=== PATIENT | male | born 1945 | race African-American/Black ===

== ENCOUNTER 2017-03-07 08:46 | Emergency (ER) | payer OTHER, MEDICAID ==
[~2017-03-07] VITALS: Ht 162.6 cm; Wt 54.0 kg
[~2017-03-07 08:46] MED LIST: FINA5TAB11 PO; NEXIUM; TAMS0.4C31 PO
[2017-03-07] MEDS ORDERED: IBUPROFEN 600MG TABLET PO ONE (11:15)
[2017-03-07] MEDS ORDERED: HYDROCODONE/ACETAMINOPHEN 5/325MG TABLET PO ONE (15:15)
[2017-03-07 16:00] VITALS: BP 147/84
== END 2017-03-07 17:46 | disposition home or self-care (01) ==
LOC: ER 12:48
DX: M48.54XA Collapsed vertebra, not elsewhere classified, thoracic region, initial encounter for fracture (principal); E86.0 Dehydration; M43.17 Spondylolisthesis, lumbosacral region; N40.0 Benign prostatic hyperplasia without lower urinary tract symptoms; I10 Essential (primary) hypertension; M19.90 Unspecified osteoarthritis, unspecified site; W18.30XA Fall on same level, unspecified, initial encounter; Y93.89 Activity, other specified; Y99.8 Other external cause status; Y92.009 Unspecified place in unspecified non-institutional (private) residence as the place of occurrence of the external cause
CPT/HCPCS: 72070; 72100; 99284

== ENCOUNTER 2018-05-23 12:11 | Emergency (ER) | payer OTHER, MEDICAID ==
[~2018-05-23] VITALS: Ht 162.6 cm; Wt 57.0 kg
[2018-05-23 12:21] VITALS: BP 125/79
== END 2018-05-23 16:00 | disposition home or self-care (01) ==
LOC: ER 14:06
DX: T85.618A Breakdown (mechanical) of other specified internal prosthetic devices, implants and grafts, initial encounter (principal); Y82.8 Other medical devices associated with adverse incidents; Y92.9 Unspecified place or not applicable; R42 Dizziness and giddiness; J06.9 Acute upper respiratory infection, unspecified; I10 Essential (primary) hypertension
CPT/HCPCS: 99283

== ENCOUNTER 2019-03-06 07:59 | Emergency (ER) | payer OTHER, MEDICAID ==
[~2019-03-06] VITALS: Ht 170.2 cm; Wt 70.0 kg
[2019-03-06 10:05] LABS: CLARITY URINE CLEAR (CLEAR); COLOR URINE YELLOW (YELLOW); KETONES URINE TRACE (NEGATIVE); LEUKOCYTE ESTERASE URINE NEGATIVE (NEGATIVE); NITRITE URINE NEGATIVE (NEGATIVE); OCCULT BLOOD URINE 2+ (NEGATIVE); PROTEIN URINE TRACE (NEGATIVE); SPECIFIC GRAVITY URINE 1.017 (1.005-1.030); UROBILINOGEN URINE 0.2 E.U./dL (0.2-1.0)
[2019-03-06] MEDS ORDERED: SODIUM CHLORIDE 0.9% 1,000 ML IV ONE (10:17)
[2019-03-06 11:35] LABS: BASOPHILS % 0.8 % (0.0-2.0); EOSINOPHILS % 0.8 % (0.0-5.0); HEMATOCRIT. 41.1 % (42.0-52.0); HEMOGLOBIN. 14.2 g/dL (14.0-18.0); LYMPHOCYTES % 23.8 % (20.0-50.0); MEAN CORPUSCULAR VOLUME 98.1 fL (80.0-94.0); MEAN PLATELET VOLUME 7.4 fl (7.4-10.4); MONOCYTES % 8.8 % (2.0-8.0); NEUTROPHILS % 65.8 % (40.0-76.0); PLATELET 247 x1000/uL (130-400); RED BLOOD CELL COUNT 4.19 mill/uL (4.7-6.1)
[2019-03-06 11:42] LABS: CHLORIDE 107 mEq/L (98-107)
[2019-03-06 15:03] VITALS: BP 145/71
== END 2019-03-06 15:04 | disposition home or self-care (01) ==
LOC: ER 07:59
DX: K59.00 Constipation, unspecified (principal); K64.9 Unspecified hemorrhoids; R33.9 Retention of urine, unspecified; I10 Essential (primary) hypertension
CPT/HCPCS: 36415; 51702; 71045; 80053; 81003; 83690; 83880; 84484; 85025; 93005; 99284; J7030

== ENCOUNTER 2019-03-09 07:16 | Emergency (ER) | payer OTHER, MEDICAID ==
[~2019-03-09] VITALS: Ht 167.6 cm; Wt 65.0 kg
[2019-03-09 10:10] VITALS: BP 151/74
== END 2019-03-09 10:10 | disposition home or self-care (01) ==
LOC: ER 07:16
DX: R33.9 Retention of urine, unspecified (principal); Z46.6 Encounter for fitting and adjustment of urinary device; I10 Essential (primary) hypertension; Z87.438 Personal history of other diseases of male genital organs; Z87.09 Personal history of other diseases of the respiratory system; Z79.899 Other long term (current) drug therapy
CPT/HCPCS: 99283

== ENCOUNTER 2021-12-24 12:57 | Inpatient (IN) | payer OTHER, MEDICAID ==
[~2021-12-24] VITALS: Ht 162.6 cm; Wt 44.0 kg
[2021-12-24] MEDS ORDERED: ONDANSETRON HCL 4MG/2ML INJ IV STA (14:03)
[2021-12-24] MEDS ORDERED: KETOROLAC 30MG/ML VIAL IV STA (14:03)
[2021-12-24] MEDS ORDERED: MORPHINE SULFATE 4 MG/ML CPJ (NOT FOR IM USE) IV STA (14:03)
[2021-12-24] MEDS ORDERED: SODIUM CHLORIDE 0.9% 1,000 ML IV ONE (14:15)
[2021-12-24 14:45] LABS: CLARITY URINE CLOUDY (CLEAR); COLOR URINE YELLOW (YELLOW); KETONES URINE NEGATIVE (NEGATIVE); LEUKOCYTE ESTERASE URINE 1+ (NEGATIVE); NITRITE URINE POSITIVE (NEGATIVE); OCCULT BLOOD URINE 1+ (NEGATIVE); PH URINE 5.5 (4.5-8.0); PROTEIN URINE 3+ (NEGATIVE); SPECIFIC GRAVITY URINE 1.016 (1.005-1.030)
[2021-12-24 15:00] LABS: CHLORIDE 104 mEq/L (98-107)
[2021-12-24 15:03] LABS: BASOPHILS % 1.9 % (0.0-2.0); HEMATOCRIT. 43.7 % (42.0-52.0); LYMPHOCYTES % 20.8 % (20.0-50.0); MEAN CORPUSCULAR VOLUME 77.2 fL (80.0-94.0); MEAN PLATELET VOLUME 8.2 fl (7.4-10.4); MONOCYTES % 13.9 % (2.0-8.0); NEUTROPHILS % 60.4 % (40.0-76.0); PLATELET 609 x1000/uL (130-400); RED BLOOD CELL COUNT 5.66 mill/uL (4.7-6.1); RED CELL DISTRIBUTION WIDTH 19.1 % (11.6-14.6)
[2021-12-24] MEDS ORDERED: CEFTRIAXONE 1 G PREMIX 50 ML IV ONE (15:30)
[2021-12-24] MEDS ORDERED: KETOROLAC 15MG/ML VIAL IV NR (15:49)
[2021-12-24] MEDS ORDERED: ONDANSETRON HCL 4MG/2ML INJ IV NR (15:49)
[2021-12-24] MEDS: MORPHINE SULFATE 4 MG/ML CPJ (NOT FOR IM USE) IV NR ×2 (16:06→17:14)
[2021-12-25 02:06] VITALS: BP 98/57
[2021-12-25] MEDS: DEXT 5%/0.45% NACL 1000ML 1,000 ML IV SCH ×2 (02:58→22:47)
[2021-12-25 04:00] VITALS: BP 115/60
[2021-12-25 08:00] VITALS: BP 148/72
[2021-12-25] MEDS: PANTOPRAZOLE SODIUM 40 MG/VIAL IV SCH (09:29)
[2021-12-25] MEDS: MORPHINE SULFATE 2 MG/ML CPJ (NOT FOR IM USE) IV PRN ×2 (10:29→23:03)
[2021-12-25 12:00] VITALS: BP 123/65
[2021-12-25 16:00] VITALS: BP 157/72
[2021-12-25] MEDS ORDERED: CEFTRIAXONE 1 G PREMIX 50 ML IV SCH (16:15)
[2021-12-25] MEDS: CEFTRIAXONE 1,000 MG in DEXTROSE 5% WATER 50 ML IV SCH (17:42)
[2021-12-25] MEDS ORDERED: NALOXONE HCL 0.4MG/ML VIAL IV PRN (17:45)
[2021-12-25 18:19] LABS: HEPATITIS B SURFACE ANTIGEN NEGATIVE
[2021-12-25 20:00] VITALS: BP 111/61
[2021-12-26 04:00] VITALS: BP 134/72
[2021-12-26] MEDS ORDERED: LIDOCAINE HCL/PF 1% 10 MG/ML 5ML VIAL ONE (07:08)
[2021-12-26 08:00] VITALS: BP 160/70
[2021-12-26 08:18] LABS: BASOPHILS % 2.2 % (0.0-2.0); HEMATOCRIT. 45.2 % (42.0-52.0); HEMOGLOBIN. 13.6 g/dL (14.0-18.0); LYMPHOCYTES % 22.2 % (20.0-50.0); MEAN CORPUSCULAR HEMOGLOBIN 23.1 pg (28.0-32.0); MEAN PLATELET VOLUME 8.4 fl (7.4-10.4); MONOCYTES % 14.9 % (2.0-8.0); NEUTROPHILS % 57.7 % (40.0-76.0); PLATELET 562 x1000/uL (130-400); RED BLOOD CELL COUNT 5.87 mill/uL (4.7-6.1); RED CELL DISTRIBUTION WIDTH 18.8 % (11.6-14.6)
[2021-12-26 08:24] LABS: CHLORIDE 100 mEq/L (98-107)
[2021-12-26 08:26] LABS: PROTHROMBIN TIME 11.1 sec (9.6-11.0)
[2021-12-26] MEDS ORDERED: FENTANYL CITRATE/PF 50MCG/ML 2ML VIAL ONE (08:58)
[2021-12-26] MEDS: PANTOPRAZOLE SODIUM 40 MG/VIAL IV SCH (10:26)
[2021-12-26] MEDS: MORPHINE SULFATE 2 MG/ML CPJ (NOT FOR IM USE) IV PRN (11:54)
[2021-12-26 12:00] VITALS: BP 146/76
[2021-12-26 12:12] LABS: INR 1.1; PROTHROMBIN TIME 11.3 sec (9.6-11.0)
[2021-12-26 16:00] VITALS: BP 144/82
[2021-12-26] MEDS: DEXT 5%/0.45% NACL 1000ML 1,000 ML IV SCH (17:32)
[2021-12-26] MEDS: CEFTRIAXONE 1,000 MG in DEXTROSE 5% WATER 50 ML IV SCH (17:32)
[2021-12-26] MEDS: TAMSULOSIN HCL 0.4MG SR CAPSULE PO SCH (17:33)
[2021-12-26] MEDS: FINASTERIDE 5MG TABLET PO SCH (17:34)
[2021-12-26 20:00] VITALS: BP 140/82
[2021-12-27] VITALS: BP 138/83
[2021-12-27] MEDS: MORPHINE SULFATE 2 MG/ML CPJ (NOT FOR IM USE) IV PRN ×3 (01:06→19:53)
[2021-12-27 04:00] VITALS: BP 127/81
[2021-12-27 08:00] VITALS: BP 130/71
[2021-12-27 08:20] LABS: BASOPHILS % 0.6 % (0.0-2.0); EOSINOPHILS % 3.5 % (0.0-5.0); HEMATOCRIT. 47.5 % (42.0-52.0); HEMOGLOBIN. 13.8 g/dL (14.0-18.0); LYMPHOCYTES % 22.3 % (20.0-50.0); MEAN CORPUSCULAR HEMOGLOBIN 22.8 pg (28.0-32.0); MEAN CORPUSCULAR VOLUME 78.6 fL (80.0-94.0); MEAN PLATELET VOLUME 8.2 fl (7.4-10.4); MONOCYTES % 14.2 % (2.0-8.0); NEUTROPHILS % 59.4 % (40.0-76.0); PLATELET 509 x1000/uL (130-400); RED BLOOD CELL COUNT 6.04 mill/uL (4.7-6.1); RED CELL DISTRIBUTION WIDTH 19.4 % (11.6-14.6)
[2021-12-27 08:30] LABS: CHLORIDE 102 mEq/L (98-107)
[2021-12-27] MEDS ORDERED: FINASTERIDE 5MG TABLET PO SCH (09:00)
[2021-12-27] MEDS ORDERED: TAMSULOSIN HCL 0.4MG SR CAPSULE PO SCH (09:00)
[2021-12-27] MEDS: FINASTERIDE 5MG TABLET PO SCH (09:29)
[2021-12-27] MEDS: PANTOPRAZOLE SODIUM 40 MG/VIAL IV SCH (09:30)
[2021-12-27] MEDS: TAMSULOSIN HCL 0.4MG SR CAPSULE PO SCH (09:30)
[2021-12-27 12:00] VITALS: BP 143/78
[2021-12-27 16:00] VITALS: BP 133/75
[2021-12-27] MEDS: CEFTRIAXONE 1,000 MG in DEXTROSE 5% WATER 50 ML IV SCH (16:51)
[2021-12-27 20:00] VITALS: BP 131/72
[2021-12-28] VITALS (23 sets, daily range): BP systolic 128–164; BP diastolic 57–93
[2021-12-28 06:44] LABS: BASOPHILS % 0.9 % (0.0-2.0); EOSINOPHILS % 3.3 % (0.0-5.0); HEMATOCRIT. 45.3 % (42.0-52.0); HEMOGLOBIN. 13.6 g/dL (14.0-18.0); LYMPHOCYTES % 23.1 % (20.0-50.0); MEAN CORPUSCULAR VOLUME 76.4 fL (80.0-94.0); MEAN PLATELET VOLUME 8.3 fl (7.4-10.4); MONOCYTES % 14.4 % (2.0-8.0); NEUTROPHILS % 58.3 % (40.0-76.0); PLATELET 578 x1000/uL (130-400); RED BLOOD CELL COUNT 5.93 mill/uL (4.7-6.1); RED CELL DISTRIBUTION WIDTH 19.1 % (11.6-14.6)
[2021-12-28] MEDS: DEXT 5%/0.45% NACL 1000ML 1,000 ML IV SCH ×3 (06:59→22:17)
[2021-12-28] MEDS ORDERED: FENTANYL CITRATE/PF 50MCG/ML 2ML VIAL IV NR (07:21)
[2021-12-28] MEDS ORDERED: LIDOCAINE HCL/PF 1% 10 MG/ML 5ML VIAL ONE (07:21)
[2021-12-28] MEDS ORDERED: FENTANYL CITRATE/PF 50MCG/ML 2ML VIAL ONE (07:21)
[2021-12-28 08:41] LABS: CHLORIDE 99 mEq/L (98-107)
[2021-12-28 09:39] LABS: INR 1.1; PROTHROMBIN TIME 11.4 sec (9.6-11.0)
[2021-12-28] MEDS: FINASTERIDE 5MG TABLET PO SCH (10:30)
[2021-12-28] MEDS: PANTOPRAZOLE SODIUM 40 MG/VIAL IV SCH (10:30)
[2021-12-28] MEDS: TAMSULOSIN HCL 0.4MG SR CAPSULE PO SCH (10:31)
[2021-12-28] MEDS: MORPHINE SULFATE 2 MG/ML CPJ (NOT FOR IM USE) IV PRN ×2 (10:32→23:32)
[2021-12-28 13:23] LABS: HEMATOCRIT 44.1 % (42.0-52.0); HEMOGLOBIN 13.2 g/dL (14.0-18.0)
[2021-12-28] MEDS: CEFTRIAXONE 1,000 MG in DEXTROSE 5% WATER 50 ML IV SCH (17:46)
[2021-12-29] VITALS: BP 134/82
[2021-12-29 04:00] VITALS: BP 191/82
[2021-12-29 06:19] LABS: HEMATOCRIT. 42.7 % (42.0-52.0); MEAN CORPUSCULAR HEMOGLOBIN 22.9 pg (28.0-32.0); MEAN CORPUSCULAR VOLUME 75.2 fL (80.0-94.0); MEAN PLATELET VOLUME 8.5 fl (7.4-10.4); PLATELET 525 x1000/uL (130-400); RED BLOOD CELL COUNT 5.67 mill/uL (4.7-6.1); RED CELL DISTRIBUTION WIDTH 19.4 % (11.6-14.6)
[2021-12-29 06:20] LABS: CHLORIDE 103 mEq/L (98-107)
[2021-12-29 08:00] VITALS: BP 148/73
[2021-12-29] MEDS: TAMSULOSIN HCL 0.4MG SR CAPSULE PO SCH (09:36)
[2021-12-29] MEDS: FINASTERIDE 5MG TABLET PO SCH (09:37)
[2021-12-29] MEDS: PANTOPRAZOLE SODIUM 40 MG/VIAL IV SCH (09:37)
[2021-12-29] MEDS: DEXT 5%/0.45% NACL 1000ML 1,000 ML IV SCH (11:21)
[2021-12-29] MEDS: MORPHINE SULFATE 2 MG/ML CPJ (NOT FOR IM USE) IV PRN (11:25)
[2021-12-29 12:00] VITALS: BP 132/73
[2021-12-29 14:38] LABS: PLATELET ESTIMATE INCREASED
[2021-12-29 16:00] VITALS: BP 124/66
[2021-12-29] MEDS: CEFTRIAXONE 1,000 MG in DEXTROSE 5% WATER 50 ML IV SCH (16:40)
[2021-12-29 20:00] VITALS: BP 108/52
[2021-12-30] MEDS: DEXT 5%/0.45% NACL 1000ML 1,000 ML IV SCH ×2 (01:18→15:15)
[2021-12-30] MEDS: HYDROCODONE/ACETAMINOPHEN 5/325MG TABLET PO PRN ×3 (01:19→15:33)
[2021-12-30 05:44] LABS: CHLORIDE 103 mEq/L (98-107); HEMATOCRIT. 39.5 % (42.0-52.0); MEAN CORPUSCULAR HEMOGLOBIN 22.9 pg (28.0-32.0); MEAN CORPUSCULAR VOLUME 75.4 fL (80.0-94.0); MEAN PLATELET VOLUME 8.3 fl (7.4-10.4); PLATELET 499 x1000/uL (130-400); RED BLOOD CELL COUNT 5.24 mill/uL (4.7-6.1); RED CELL DISTRIBUTION WIDTH 19.2 % (11.6-14.6)
[2021-12-30 08:00] VITALS: BP 129/63
[2021-12-30] MEDS: FINASTERIDE 5MG TABLET PO SCH (08:44)
[2021-12-30] MEDS: PANTOPRAZOLE SODIUM 40 MG/VIAL IV SCH (08:44)
[2021-12-30] MEDS: TAMSULOSIN HCL 0.4MG SR CAPSULE PO SCH (08:44)
[2021-12-30 12:00] VITALS: BP 125/57
[2021-12-30 16:00] VITALS: BP 152/68
[2021-12-30] MEDS: CEFTRIAXONE 1,000 MG in DEXTROSE 5% WATER 50 ML IV SCH (17:02)
[2021-12-30 20:00] VITALS: BP 156/76
[2021-12-30 20:13] LABS: NUCLEATED RED BLOOD CELLS 1 /100 WBC; PLATELET ESTIMATE INCREASED
[2021-12-31] VITALS: BP 150/82
[2021-12-31] MEDS: DEXT 5%/0.45% NACL 1000ML 1,000 ML IV SCH ×2 (03:55→17:58)
[2021-12-31 04:00] VITALS: BP 149/59
[2021-12-31] MEDS: HYDROCODONE/ACETAMINOPHEN 5/325MG TABLET PO PRN ×2 (05:44→20:21)
[2021-12-31 06:45] LABS: CHLORIDE 104 mEq/L (98-107)
[2021-12-31 07:22] LABS: BASOPHILS % 0.6 % (0.0-2.0); EOSINOPHILS % 3.3 % (0.0-5.0); HEMATOCRIT. 41.7 % (42.0-52.0); HEMOGLOBIN. 12.6 g/dL (14.0-18.0); LYMPHOCYTES % 16.1 % (20.0-50.0); MEAN CORPUSCULAR HEMOGLOBIN 22.8 pg (28.0-32.0); MEAN CORPUSCULAR VOLUME 75.5 fL (80.0-94.0); MEAN PLATELET VOLUME 8.7 fl (7.4-10.4); MONOCYTES % 12.7 % (2.0-8.0); NEUTROPHILS % 67.3 % (40.0-76.0); PLATELET 534 x1000/uL (130-400); RED BLOOD CELL COUNT 5.52 mill/uL (4.7-6.1); RED CELL DISTRIBUTION WIDTH 19.2 % (11.6-14.6)
[2021-12-31 08:00] VITALS: BP 184/90
[2021-12-31] MEDS: FINASTERIDE 5MG TABLET PO SCH (09:09)
[2021-12-31] MEDS: TAMSULOSIN HCL 0.4MG SR CAPSULE PO SCH (09:09)
[2021-12-31] MEDS: PANTOPRAZOLE SODIUM 40 MG/VIAL IV SCH (09:10)
[2021-12-31 12:00] VITALS: BP 164/83
[2021-12-31 13:02] LABS: BASOPHILS % 0.4 % (0.0-2.0); EOSINOPHILS % 3.1 % (0.0-5.0); HEMATOCRIT. 41.5 % (42.0-52.0); HEMOGLOBIN. 12.4 g/dL (14.0-18.0); LYMPHOCYTES % 19.4 % (20.0-50.0); MEAN CORPUSCULAR HEMOGLOBIN 22.5 pg (28.0-32.0); MEAN CORPUSCULAR VOLUME 75.5 fL (80.0-94.0); MEAN PLATELET VOLUME 8.5 fl (7.4-10.4); MONOCYTES % 14.1 % (2.0-8.0); PLATELET 538 x1000/uL (130-400); RED CELL DISTRIBUTION WIDTH 19.2 % (11.6-14.6)
[2021-12-31 13:09] LABS: CHLORIDE 103 mEq/L (98-107)
[2021-12-31 16:00] VITALS: BP 155/78
[2021-12-31 20:00] VITALS: BP 145/85
[2022-01-01] VITALS: BP 145/86
[2022-01-01 04:00] VITALS: BP 137/77
[2022-01-01 06:33] LABS: HEMATOCRIT. 43.4 % (42.0-52.0); MEAN CORPUSCULAR HEMOGLOBIN 22.4 pg (28.0-32.0); MEAN CORPUSCULAR VOLUME 74.6 fL (80.0-94.0); MEAN PLATELET VOLUME 8.4 fl (7.4-10.4); PLATELET 546 x1000/uL (130-400); RED BLOOD CELL COUNT 5.81 mill/uL (4.7-6.1); RED CELL DISTRIBUTION WIDTH 18.8 % (11.6-14.6)
[2022-01-01 06:56] LABS: CHLORIDE 101 mEq/L (98-107)
[2022-01-01] MEDS: DEXT 5%/0.45% NACL 1000ML 1,000 ML IV SCH ×2 (07:11→19:55)
[2022-01-01 08:00] VITALS: BP 107/62
[2022-01-01] MEDS: PANTOPRAZOLE SODIUM 40 MG/VIAL IV SCH (10:29)
[2022-01-01] MEDS: FINASTERIDE 5MG TABLET PO SCH (10:30)
[2022-01-01] MEDS: TAMSULOSIN HCL 0.4MG SR CAPSULE PO SCH (10:30)
[2022-01-01] MEDS: HYDROCODONE/ACETAMINOPHEN 5/325MG TABLET PO PRN (10:30)
[2022-01-01 11:54] VITALS: BP 132/71
[2022-01-01 12:46] LABS: PLATELET ESTIMATE INCREASED
[2022-01-01 15:54] VITALS: BP 128/74
[2022-01-01 20:00] VITALS: BP 133/67
[2022-01-02] VITALS: BP 128/62
[2022-01-02] MEDS: HYDROCODONE/ACETAMINOPHEN 5/325MG TABLET PO PRN ×4 (02:48→21:03)
[2022-01-02 04:00] VITALS: BP 131/60
[2022-01-02 07:23] LABS: HEMATOCRIT. 40.3 % (42.0-52.0); MEAN CORPUSCULAR HEMOGLOBIN 22.4 pg (28.0-32.0); MEAN PLATELET VOLUME 8.5 fl (7.4-10.4); PLATELET 519 x1000/uL (130-400); RED BLOOD CELL COUNT 5.36 mill/uL (4.7-6.1); RED CELL DISTRIBUTION WIDTH 19.7 % (11.6-14.6)
[2022-01-02 08:00] VITALS: BP 136/70
[2022-01-02 08:13] LABS: CHLORIDE 100 mEq/L (98-107)
[2022-01-02] MEDS: PANTOPRAZOLE SODIUM 40 MG/VIAL IV SCH (09:49)
[2022-01-02] MEDS: FINASTERIDE 5MG TABLET PO SCH (09:49)
[2022-01-02] MEDS: TAMSULOSIN HCL 0.4MG SR CAPSULE PO SCH (09:50)
[2022-01-02] MEDS: DEXT 5%/0.45% NACL 1000ML 1,000 ML IV SCH ×2 (09:50→22:35)
[2022-01-02 11:41] LABS: PLATELET ESTIMATE INCREASED
[2022-01-02 12:00] VITALS: BP 119/74
[2022-01-02 16:00] VITALS: BP 128/74
[2022-01-02] MEDS ORDERED: NALOXONE HCL 0.4MG/ML VIAL IV PRN (17:00)
[2022-01-02] MEDS ORDERED: POLYETHYLENE GLYCOL 3350 (17GM) 1 DOSE PACK PO PRN (17:00)
[2022-01-02] MEDS ORDERED: DOCUSATE SODIUM 250MG CAPSULE PO PRN (17:00)
[2022-01-02 20:00] VITALS: BP 100/49
[2022-01-02] MEDS: SENNOSIDES 8.6MG TABLET PO SCH (20:55)
[2022-01-03] VITALS: BP 145/77
[2022-01-03 04:00] VITALS: BP 116/57
[2022-01-03 06:26] LABS: HEMATOCRIT. 39.2 % (42.0-52.0); HEMOGLOBIN. 11.8 g/dL (14.0-18.0); MEAN CORPUSCULAR HEMOGLOBIN 22.5 pg (28.0-32.0); MEAN CORPUSCULAR VOLUME 74.8 fL (80.0-94.0); MEAN PLATELET VOLUME 8.6 fl (7.4-10.4); PLATELET 525 x1000/uL (130-400); RED BLOOD CELL COUNT 5.23 mill/uL (4.7-6.1); RED CELL DISTRIBUTION WIDTH 19.8 % (11.6-14.6)
[2022-01-03 07:10] LABS: CHLORIDE 100 mEq/L (98-107)
[2022-01-03 08:00] VITALS: BP 190/96
[2022-01-03] MEDS: PANTOPRAZOLE SODIUM 40 MG/VIAL IV SCH (08:42)
[2022-01-03] MEDS: FINASTERIDE 5MG TABLET PO SCH (08:42)
[2022-01-03] MEDS: TAMSULOSIN HCL 0.4MG SR CAPSULE PO SCH (08:43)
[2022-01-03] MEDS: HYDROCODONE/ACETAMINOPHEN 5/325MG TABLET PO PRN ×2 (08:44→16:09)
[2022-01-03] MEDS: DEXT 5%/0.45% NACL 1000ML 1,000 ML IV SCH (11:55)
[2022-01-03 12:00] VITALS: BP 119/72
[2022-01-03 13:52] LABS: ATYPICAL LYMPHOCYTES 2
[2022-01-03 13:55] LABS: PLATELET ESTIMATE INCREASED
[2022-01-03 16:00] VITALS: BP 124/74
[2022-01-03 20:00] VITALS: BP 114/61
[2022-01-03] MEDS: SENNOSIDES 8.6MG TABLET PO SCH (20:59)
[2022-01-04] VITALS: BP 137/75
[2022-01-04] MEDS: HYDROCODONE/ACETAMINOPHEN 5/325MG TABLET PO PRN ×2 (00:56→15:06)
[2022-01-04] MEDS: DEXT 5%/0.45% NACL 1000ML 1,000 ML IV SCH ×2 (01:15→15:06)
[2022-01-04 04:00] VITALS: BP 136/77
[2022-01-04 06:34] LABS: CHLORIDE 98 mEq/L (98-107)
[2022-01-04 06:35] LABS: HEMOGLOBIN. 11.7 g/dL (14.0-18.0); MEAN CORPUSCULAR HEMOGLOBIN 22.9 pg (28.0-32.0); MEAN PLATELET VOLUME 8.6 fl (7.4-10.4); PLATELET 522 x1000/uL (130-400); RED BLOOD CELL COUNT 5.13 mill/uL (4.7-6.1); RED CELL DISTRIBUTION WIDTH 19.2 % (11.6-14.6)
[2022-01-04 08:00] VITALS: BP 138/63
[2022-01-04] MEDS: PANTOPRAZOLE SODIUM 40 MG/VIAL IV SCH (08:25)
[2022-01-04] MEDS: TAMSULOSIN HCL 0.4MG SR CAPSULE PO SCH (08:26)
[2022-01-04] MEDS: FINASTERIDE 5MG TABLET PO SCH (08:26)
[2022-01-04 12:00] VITALS: BP 122/64
[2022-01-04 12:10] LABS: PLATELET ESTIMATE INCREASED
[2022-01-04 16:00] VITALS: BP 152/82
[2022-01-04 20:00] VITALS: BP 139/75
[2022-01-04] MEDS: SENNOSIDES 8.6MG TABLET PO SCH (21:00)
[2022-01-05] VITALS: BP 145/79
[2022-01-05] MEDS: DEXT 5%/0.45% NACL 1000ML 1,000 ML IV SCH ×2 (03:55→17:58)
[2022-01-05 04:00] VITALS: BP 138/85
[2022-01-05] MEDS: HYDROCODONE/ACETAMINOPHEN 5/325MG TABLET PO PRN ×2 (05:02→13:41)
[2022-01-05 08:00] VITALS: BP 183/108
[2022-01-05 08:41] LABS: HEMOGLOBIN. 11.9 g/dL (14.0-18.0); RED CELL DISTRIBUTION WIDTH 19.6 % (11.6-14.6)
[2022-01-05 08:44] LABS: MEAN CORPUSCULAR HEMOGLOBIN 22.6 pg (28.0-32.0); MEAN PLATELET VOLUME 8.3 fl (7.4-10.4); PLATELET 515 x1000/uL (130-400); RED BLOOD CELL COUNT 5.26 mill/uL (4.7-6.1)
[2022-01-05] MEDS: PANTOPRAZOLE SODIUM 40 MG/VIAL IV SCH (08:57)
[2022-01-05] MEDS: FINASTERIDE 5MG TABLET PO SCH (08:58)
[2022-01-05] MEDS: TAMSULOSIN HCL 0.4MG SR CAPSULE PO SCH (08:58)
[2022-01-05 10:26] LABS: CHLORIDE 99 mEq/L (98-107)
[2022-01-05 12:00] VITALS: BP 120/67
[2022-01-05 12:20] LABS: NUCLEATED RED BLOOD CELLS 2 /100 WBC; PLATELET ESTIMATE INCREASED
[2022-01-05 16:00] VITALS: BP 123/69
[2022-01-05 20:00] VITALS: BP 140/67
[2022-01-05] MEDS: SENNOSIDES 8.6MG TABLET PO SCH (21:10)
[2022-01-06] VITALS: BP 156/97
[2022-01-06] MEDS: HYDROCODONE/ACETAMINOPHEN 5/325MG TABLET PO PRN ×4 (00:22→21:44)
[2022-01-06 04:00] VITALS: BP 141/78
[2022-01-06] MEDS: DEXT 5%/0.45% NACL 1000ML 1,000 ML IV SCH ×2 (06:35→19:55)
[2022-01-06 07:15] LABS: BASOPHILS % 1.2 % (0.0-2.0); EOSINOPHILS % 5.8 % (0.0-5.0); HEMATOCRIT. 38.8 % (42.0-52.0); HEMOGLOBIN. 11.5 g/dL (14.0-18.0); LYMPHOCYTES % 21.3 % (20.0-50.0); MEAN CORPUSCULAR HEMOGLOBIN 22.1 pg (28.0-32.0); MEAN CORPUSCULAR VOLUME 74.6 fL (80.0-94.0); MEAN PLATELET VOLUME 8.4 fl (7.4-10.4); MONOCYTES % 14.1 % (2.0-8.0); NEUTROPHILS % 57.6 % (40.0-76.0); PLATELET 512 x1000/uL (130-400); RED BLOOD CELL COUNT 5.21 mill/uL (4.7-6.1); RED CELL DISTRIBUTION WIDTH 19.6 % (11.6-14.6)
[2022-01-06 07:31] LABS: CHLORIDE 99 mEq/L (98-107)
[2022-01-06 08:00] VITALS: BP 149/78
[2022-01-06] MEDS: TAMSULOSIN HCL 0.4MG SR CAPSULE PO SCH (09:34)
[2022-01-06] MEDS: PANTOPRAZOLE SODIUM 40 MG/VIAL IV SCH (09:35)
[2022-01-06] MEDS: FINASTERIDE 5MG TABLET PO SCH (09:35)
[2022-01-06 12:00] VITALS: BP 197/96
[2022-01-06 16:00] VITALS: BP 128/77
[2022-01-06 20:00] VITALS: BP 147/83
[2022-01-06] MEDS: SENNOSIDES 8.6MG TABLET PO SCH (21:45)
[2022-01-07] VITALS (7 sets, daily range): BP systolic 104–153; BP diastolic 64–96
[2022-01-07] MEDS: VISCOUS LIDOCAINE 2% 15 ML UDC MM PRN ×2 (06:20→17:09)
[2022-01-07 06:46] LABS: BASOPHILS % 0.5 % (0.0-2.0); EOSINOPHILS % 5.7 % (0.0-5.0); HEMATOCRIT. 40.3 % (42.0-52.0); HEMOGLOBIN. 11.8 g/dL (14.0-18.0); LYMPHOCYTES % 16.7 % (20.0-50.0); MEAN CORPUSCULAR HEMOGLOBIN 21.5 pg (28.0-32.0); MEAN CORPUSCULAR VOLUME 73.6 fL (80.0-94.0); MEAN PLATELET VOLUME 8.5 fl (7.4-10.4); MONOCYTES % 13.1 % (2.0-8.0); PLATELET 548 x1000/uL (130-400); RED BLOOD CELL COUNT 5.48 mill/uL (4.7-6.1)
[2022-01-07 06:57] LABS: CHLORIDE 100 mEq/L (98-107)
[2022-01-07] MEDS: FINASTERIDE 5MG TABLET PO SCH (10:27)
[2022-01-07] MEDS: PANTOPRAZOLE SODIUM 40 MG/VIAL IV SCH (10:29)
[2022-01-07] MEDS: DEXT 5%/0.45% NACL 1000ML 1,000 ML IV SCH ×2 (10:30→22:14)
[2022-01-07] MEDS: HYDROCODONE/ACETAMINOPHEN 5/325MG TABLET PO PRN ×2 (10:45→17:15)
[2022-01-07] MEDS: TAMSULOSIN HCL 0.4MG SR CAPSULE PO SCH (10:45)
[2022-01-07] MEDS: SENNOSIDES 8.6MG TABLET PO SCH (21:07)
[2022-01-08] VITALS (7 sets, daily range): BP systolic 104–194; BP diastolic 57–103
[2022-01-08] MEDS ORDERED: CLONIDINE 0.1MG TABLET PO PRN (05:45)
[2022-01-08 06:39] LABS: BASOPHILS % 0.5 % (0.0-2.0); EOSINOPHILS % 6.2 % (0.0-5.0); HEMATOCRIT. 40.6 % (42.0-52.0); HEMOGLOBIN. 12.3 g/dL (14.0-18.0); LYMPHOCYTES % 21.1 % (20.0-50.0); MEAN CORPUSCULAR HEMOGLOBIN 22.7 pg (28.0-32.0); MEAN CORPUSCULAR VOLUME 74.7 fL (80.0-94.0); MEAN PLATELET VOLUME 8.4 fl (7.4-10.4); NEUTROPHILS % 60.2 % (40.0-76.0); PLATELET 571 x1000/uL (130-400); RED BLOOD CELL COUNT 5.44 mill/uL (4.7-6.1)
[2022-01-08 06:47] LABS: CHLORIDE 97 mEq/L (98-107)
[2022-01-08] MEDS: FINASTERIDE 5MG TABLET PO SCH (09:43)
[2022-01-08] MEDS: PANTOPRAZOLE SODIUM 40 MG/VIAL IV SCH (09:43)
[2022-01-08] MEDS: VISCOUS LIDOCAINE 2% 15 ML UDC MM PRN ×2 (09:44→20:06)
[2022-01-08] MEDS: TAMSULOSIN HCL 0.4MG SR CAPSULE PO SCH (09:44)
[2022-01-08] MEDS: DEXT 5%/0.45% NACL 1000ML 1,000 ML IV SCH (11:53)
[2022-01-08] MEDS: HYDROCODONE/ACETAMINOPHEN 5/325MG TABLET PO PRN ×2 (12:00→20:24)
[2022-01-08] MEDS: SENNOSIDES 8.6MG TABLET PO SCH (21:00)
[2022-01-08] MEDS ORDERED: NALOXONE HCL 0.4MG/ML VIAL IV PRN (23:15)
[2022-01-09] VITALS: BP 154/76
[2022-01-09] MEDS: DEXT 5%/0.45% NACL 1000ML 1,000 ML IV SCH ×2 (01:18→14:02)
[2022-01-09 04:00] VITALS: BP 159/85
[2022-01-09 08:00] VITALS: BP 133/52
[2022-01-09 08:09] LABS: BASOPHILS % 0.5 % (0.0-2.0); EOSINOPHILS % 6.4 % (0.0-5.0); HEMATOCRIT. 41.5 % (42.0-52.0); HEMOGLOBIN. 12.5 g/dL (14.0-18.0); LYMPHOCYTES % 19.9 % (20.0-50.0); MEAN CORPUSCULAR HEMOGLOBIN 22.2 pg (28.0-32.0); MEAN CORPUSCULAR VOLUME 73.7 fL (80.0-94.0); MEAN PLATELET VOLUME 8.5 fl (7.4-10.4); MONOCYTES % 13.1 % (2.0-8.0); NEUTROPHILS % 60.1 % (40.0-76.0); PLATELET 521 x1000/uL (130-400); RED BLOOD CELL COUNT 5.63 mill/uL (4.7-6.1); RED CELL DISTRIBUTION WIDTH 19.9 % (11.6-14.6)
[2022-01-09 08:14] LABS: CHLORIDE 100 mEq/L (98-107)
[2022-01-09] MEDS: TAMSULOSIN HCL 0.4MG SR CAPSULE PO SCH (09:32)
[2022-01-09] MEDS: PANTOPRAZOLE SODIUM 40 MG/VIAL IV SCH (09:32)
[2022-01-09] MEDS: FINASTERIDE 5MG TABLET PO SCH (09:33)
[2022-01-09] MEDS: HYDROCODONE/ACETAMINOPHEN 5/325MG TABLET PO PRN ×2 (09:34→19:09)
[2022-01-09 12:00] VITALS: BP_SYST 125; BP_SYST 128; BP_DIAS 72; BP_DIAS 78
[2022-01-09] MEDS: MORPHINE SULFATE 2 MG/ML CPJ (NOT FOR IM USE) IV PRN (14:45)
[2022-01-09 16:00] VITALS: BP 130/72
[2022-01-09] MEDS: VISCOUS LIDOCAINE 2% 15 ML UDC MM PRN (19:08)
[2022-01-09] MEDS: SENNOSIDES 8.6MG TABLET PO SCH (21:14)
[2022-01-10] MEDS: DEXT 5%/0.45% NACL 1000ML 1,000 ML IV SCH (04:06)
[2022-01-10] MEDS: HYDROCODONE/ACETAMINOPHEN 5/325MG TABLET PO PRN ×2 (04:08→14:08)
[2022-01-10 05:58] LABS: CHLORIDE 100 mEq/L (98-107)
[2022-01-10 06:20] LABS: HEMATOCRIT. 39.1 % (42.0-52.0); HEMOGLOBIN. 11.9 g/dL (14.0-18.0); MEAN CORPUSCULAR HEMOGLOBIN 22.3 pg (28.0-32.0); MEAN CORPUSCULAR VOLUME 73.8 fL (80.0-94.0); MEAN PLATELET VOLUME 8.5 fl (7.4-10.4); PLATELET 516 x1000/uL (130-400); RED BLOOD CELL COUNT 5.31 mill/uL (4.7-6.1)
[2022-01-10] MEDS: FINASTERIDE 5MG TABLET PO SCH (08:39)
[2022-01-10] MEDS: TAMSULOSIN HCL 0.4MG SR CAPSULE PO SCH (08:39)
[2022-01-10] MEDS: PANTOPRAZOLE SODIUM 40 MG/VIAL IV SCH (08:40)
[2022-01-10] MEDS: MORPHINE SULFATE 2 MG/ML CPJ (NOT FOR IM USE) IV PRN ×2 (08:41→18:18)
[2022-01-10 12:00] VITALS: BP 113/67
[2022-01-10 14:17] LABS: PLATELET ESTIMATE INCREASED
[2022-01-10 16:00] VITALS: BP 121/66
[2022-01-10 18:05] VITALS: BP 116/64
[2022-01-10 18:18] VITALS: BP 134/64
== END 2022-01-10 18:45 | DRG 436 ==
LOC: ER 13:29 → 6EST 18:12 → ENRESERV 21:43
PROVIDERS: ADMIT Internal Medicine; ATTEND Internal Medicine
PROC: 0FB03ZX Excision of Liver, Percutaneous Approach, Diagnostic (ICD-10-PCS; principal; 2021-12-28)
DX: C22.8 Malignant neoplasm of liver, primary, unspecified as to type (principal); E44.1 Mild protein-calorie malnutrition; N39.0 Urinary tract infection, site not specified; Z68.1 Body mass index [BMI] 19.9 or less, adult; K80.20 Calculus of gallbladder without cholecystitis without obstruction; E27.9 Disorder of adrenal gland, unspecified; F17.200 Nicotine dependence, unspecified, uncomplicated; I10 Essential (primary) hypertension; M19.90 Unspecified osteoarthritis, unspecified site; N20.0 Calculus of kidney; N28.1 Cyst of kidney, acquired; B19.20 Unspecified viral hepatitis C without hepatic coma; K59.00 Constipation, unspecified; N41.9 Inflammatory disease of prostate, unspecified; R16.0 Hepatomegaly, not elsewhere classified; Z20.822 Contact with and (suspected) exposure to COVID-19; N27.0 Small kidney, unilateral; N40.0 Benign prostatic hyperplasia without lower urinary tract symptoms; D64.9 Anemia, unspecified; B96.20 Unspecified Escherichia coli [E. coli] as the cause of diseases classified elsewhere; Z87.442 Personal history of urinary calculi; Z79.899 Other long term (current) drug therapy; Z80.0 Family history of malignant neoplasm of digestive organs; Z87.11 Personal history of peptic ulcer disease
CPT/HCPCS: 36415; 71045; 74176; 76705; 76942; 80048; 80053; 80076; 81003; 82105; 82140; 82378; 82962; 84153; 85014; 85018; 85025; 86301; 86705; 86709; 86803; 87077; 87186; 87340; 87426; 88307; 93005; 97110; 97116; 97162; 97166; 97530; 97535; 99285; C9113; J0696; J1885; J2270; J2405; J3010; J3490; J7030; J7060; G0103